=== PATIENT | female | born 1970 | race Caucasian/White ===

== ENCOUNTER 2018-04-07 13:12 | Emergency (ER) | payer BC ==
[2018-04-07 13:44] VITALS: BP 153/83
--- NOTE | 2018-04-07 13:54 | UC ---
General HPI - HPI Summary HPI Summary: pt noted a sudden snap and pain to her L foot 2 days ago. she had been favoring her R foot due to a corn which she believes strained her L foot. pt tx'ed the corn with otc patches and notes much better, just some dry-peeling skin. - History of Current Complaint Chief Complaint: UCLowerExtremity Stated Complaint: LEFT FOOT INJURY Time Seen by Provider: 04/07/18 13:34 Hx Obtained From: Patient Hx Last Menstrual Period: mid-FEB 2018; sometimes irregular Onset/Duration: Sudden Onset Timing: Constant Pain Intensity: 7 - Allergy/Home Medications Allergies/Adverse Reactions: Allergies Allergy/AdvReac Type Severity Reaction Status Date / Time No Known Allergies Allergy Verified 04/07/18 13:36 Home Medications: Home Medications Aspirin TAB* [Aspirin 325 MG TAB*] 1 tab DAILY 04/07/18 [History Confirmed 04/07] Cholecalciferol TAB* [Vitamin D TAB*] 5,000 unit DAILY 04/07/18 [History Confirmed 04/07/18] Hydroxychloroquine TAB* [Plaquenil TAB*] 1 tab BID 04/07/18 [History Confirmed 04/07/18] Olmesartan Medoxomil [Benicar] 2 tab DAILY 04/07/18 [History Confirmed 04/07/18] Potassium Chlor TAB* [Potassium Chlor TAB 20 MEQ*] 20 meq DAILY 04/07/18 [ History Confirmed 04/07/18] Torsemide TAB* [Demadex 20 MG*] 10 mg DAILY 04/07/18 [History Confirmed 04/07/18 ] oxyCODONE TAB* [Roxycodone TAB 5 mg*] 10 mg Q6HR PRN MDD 4 04/07/18 [History Confirmed 04/07/18] PMH/Surg Hx/FS Hx/Imm Hx - Additional Past Medical History Additional PMH: RA, CVA, Fibromyalgia. - Surgical History Surgical History: Yes Surgery Procedure, Year, and Place: bilat feet 30 years ago - Social History Alcohol Use: None Substance Use Type: Prescribed Smoking Status (MU): Heavy Every Day Tobacco Smoker Type: Cigarettes Amount Used/How Often: 1 PPD Length of Time of Smoking/Using Tobacco: 35 years - Immunization History Vaccination Up to Date: Yes Review of Systems All Other Systems Reviewed And Are Negative: Yes Constitutional: Positive: Other - corn r foot Skin: Positive: Negative Eyes: Positive: Negative ENT: Positive: Negative Respiratory: Positive: Negative Cardiovascular: Positive: Negative Gastrointestinal: Positive: Negative Genitourinary: Positive: Negative Motor: Positive: Negative Neurovascular: Positive: Negative Musculoskeletal: Positive: Arthralgia - chronic, Myalgia - chronic, Other: - L foot pain Neurological: Positive: Negative Psychological: Positive: Negative Is Patient Immunocompromised?: No Physical Exam Triage Information Reviewed: Yes Appearance: Well-Appearing Vital Signs: Initial Vital Signs Temp 98.7 F 04/07/18 13:37 Pulse 116 04/07/18 13:37 Resp 16 04/07/18 13:37 BP 153/83 04/07/18 13:37 Pulse Ox 100 04/07/18 13:37 Vital Signs Reviewed: Yes Eyes: Positive: Conjunctiva Clear ENT: Positive: Normal ENT inspection Neck: Positive: Supple Respiratory: Positive: Lungs clear, Normal breath sounds Cardiovascular: Positive: RRR. Negative: Tachycardia Abdomen Description: Positive: Nontender, No Organomegaly, Soft Bowel Sounds: Positive: Present Musculoskeletal: Positive: Other: - L foot= old post op scar. mild swelling and slight bruising forefoot. tender in area of 2nd metatarsal. foot has gross s/v/ m function. Neurological: Positive: Alert Psychological: Positive: Age Appropriate Behavior Skin Exam: Normal Skin: Positive: Other - Plantar surface R foot has some pale dry peeling at site of "corn" but no odor, drainage, eryuhema, warmth or tendeness. Foot has gross s/v/m function. Diagnostics - Radiology No standard instances Radiology Interpretation Completed By: Radiologist - L foot=Negative for fracture or radiographic stigmata of stress reaction. #. No significant arthropathic process evident. #. 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 #. Nonspecific soft tissue swelling. Course/Dx - Course Course Of Treatment: dry peeling skin removed from R foot at pt request. - Differential Dx - Multi-Symptom Differential Diagnoses: Other - No concern for infection R foot. No fx seen L foot, will dx sprin but stress fx is possible. - Diagnoses Provider Diagnosis: Sprain of left foot Discharge - Sign-Out/Discharge Documenting (check all that apply): Patient Departure All imaging exams completed and their final reports reviewed: Yes - Discharge Plan Condition: Stable Disposition: HOME Patient Education Materials: Foot Sprain (ED) Forms: *Work Release Referrals: Sidney Millan MD [Medical Doctor] - 5 Days Additional Instructions: WEAR POST OP SHOE UNTIL CLEARED. - Billing Disposition and Condition Condition: STABLE Disposition: Home
== END 2018-04-07 14:27 | disposition home or self-care (01) ==
LOC: UCCORT 13:12
DX: S93.602A Unspecified sprain of left foot, initial encounter (principal); X50.0XXA Overexertion from strenuous movement or load, initial encounter; Y92.9 Unspecified place or not applicable; Z86.73 Personal history of transient ischemic attack (TIA), and cerebral infarction without residual deficits; M06.9 Rheumatoid arthritis, unspecified; M79.7 Fibromyalgia; F17.210 Nicotine dependence, cigarettes, uncomplicated
CPT/HCPCS: 99202; G0463

== ENCOUNTER 2018-05-29 09:08 | Emergency (ER) | payer BC ==
[2018-05-29 09:28] VITALS: BP 143/89
--- NOTE | 2018-05-29 09:45 | UC ---
UC General HPI - HPI Summary HPI Summary: Here for cough and congestion for the past 2 weeks. Over the past 3 days, her symptoms have worsened - increase in productive cough, wheezing, and congestion with sinus headache. Has needed inhalers in the past when she is sick. Is still actively smoking. Temp last night 101. +SMITH. with similar symptoms. States she gets bronchitis every year. Nauseated last night. No vomiting or diarrhea. No abdominal pain. Good PO. PMHx: Lupus and RA - not on immunosuppressive agents. - History of Current Complaint Chief Complaint: UCRespiratory Stated Complaint: COUGH, SINUSES Time Seen by Provider: 05/29/18 09:28 Hx Last Menstrual Period: mid-FEB 2018; sometimes irregular Pain Intensity: 4 - Allergy/Home Medications Allergies/Adverse Reactions: Allergies Allergy/AdvReac Type Severity Reaction Status Date / Time antibiotics Allergy GI Upset Uncoded 05/29/18 09:28 PMH/Surg Hx/FS Hx/Imm Hx Previously Healthy: No - LUpus, RA and Fibromyalgia - Surgical History Surgical History: Yes Surgery Procedure, Year, and Place: bilat feet 30 years ago - Social History Alcohol Use: None Substance Use Type: Prescribed Smoking Status (MU): Heavy Every Day Tobacco Smoker Type: Cigarettes Amount Used/How Often: 1 PPD Length of Time of Smoking/Using Tobacco: 35 years Household Exposure Type: Cigarettes - Immunization History Vaccination Up to Date: Yes Review of Systems All Other Systems Reviewed And Are Negative: Yes Constitutional: Positive: Fever, Fatigue Skin: Positive: Rash ENT: Positive: Sinus Congestion, Sinus Pain/Tenderness Respiratory: Positive: Shortness Of Breath, Cough Cardiovascular: Positive: Negative Gastrointestinal: Positive: Nausea Is Patient Immunocompromised?: No Physical Exam Vital Signs: Initial Vital Signs Temp 97.6 F 05/29/18 09:22 Pulse 100 05/29/18 09:22 Resp 18 05/29/18 09:22 BP 143/89 05/29/18 09:22 Pulse Ox 100 05/29/18 09:22 Diagnostics - Radiology CXR Radiology Interpretation Completed By: Radiologist Summary of Radiographic Findings: No acute finding Course/Dx - Course Course Of Treatment: This is a 48 yr old with worsening URI symptoms over past 3 days (started 2 weeks ago) with fever and wheezing on exam. Assessment. No acute respiratory distress. Plan. Bronchitis with Reactive Airway Disease. Take Zpak and prednisone as prescribed. Use Albuterol inhaler every 4 hours while sick, then as needed. If symptoms persist or worsen, return to ER or call PCP for further evaluation. Discontinue smoking - Diagnoses Provider Diagnosis: Bronchitis, Reactive airway disease Discharge - Sign-Out/Discharge Documenting (check all that apply): Patient Departure All imaging exams completed and their final reports reviewed: Yes - Discharge Plan Condition: Fair Disposition: HOME Prescriptions: Albuterol HFA INHALER* [Ventolin HFA Inhaler*] 2 puff INH Q4H PRN #1 mdi PRN Reason: shortness of breath Azithromyxin [place] (NF) [Z-[place] (Zithromax) 250 mg tabs #6] 2 tab PO .TODAY, THEN 1 DAILY #6 tab Benzonatate CAP* [Tessalon 100 MG CAP*] 200 mg PO BID PRN #30 cap PRN Reason: Cough predniSONE TAB* [Deltasone 20 MG TAB*] 20 mg PO DAILY #11 tab Spacer/Holding Chamber (NF) [Easivent CHAMBER (NF)] 1 applic INH Q4HR PRN #1 device PRN Reason: Shortness Of Breath Forms: *Work Release Referrals: Lina Borden PA [Primary Care Provider] - Additional Instructions: Bronchitis with Reactive Airway Disease Take Zpak and prednisone as prescribed Use Albuterol inhaler every 4 hours while sick, then as needed If symptoms persist or worsen, return to ER or call PCP for further evaluation Discontinue smoking - Billing Disposition and Condition Condition: FAIR Disposition: Home
[2018-05-29] MEDS: Albuterol 2.5 MG/3 ML NEB.SOL* (0.083%) INH ONE (09:52)
== END 2018-05-29 10:12 | disposition home or self-care (01) ==
LOC: UCCORT 09:08
DX: J40 Bronchitis, not specified as acute or chronic (principal); J45.909 Unspecified asthma, uncomplicated; M32.9 Systemic lupus erythematosus, unspecified; M06.9 Rheumatoid arthritis, unspecified; Z88.1 Allergy status to other antibiotic agents; F17.210 Nicotine dependence, cigarettes, uncomplicated
CPT/HCPCS: 71046; 99212; G0463

== ENCOUNTER 2023-10-24 07:03 | Inpatient (IN) ==
[2023-10-24 11:41] LABS: Hematocrit 32.4 % (35-45); Mean Corpuscular Hemoglobin 27.3 pg (27-33); Mean Corpuscular Hgb Conc 30.9 g/dL (31-36); Mean Corpuscular Volume 88.4 fL (80-97); Mean Platelet Volume 8.3 fL (7.5-11.2); Platelet Count 337 10^3/uL (150-450); Red Blood Count 3.66 10^6/uL (3.63-4.92); Red Cell Distribution Width 17.5 % (12-17); White Blood Count 29.8 10^3/uL (3.8-11.8)
[2023-10-24] MEDS: Lactated Ringers 1000 ml BAG 1,000 ML IV ONE ×2 (11:45→15:13)
[2023-10-24 11:56] LABS: Activated Partial Thrombo Time 29.9 seconds (26.0-38.0); INR 1.5 (0.83-1.13)
[2023-10-24] MEDS ORDERED: Zosyn per Pharmacy NOTE FOLLOW UP SCH (12:00)
[2023-10-24] MEDS ORDERED: Vancomycin per Pharmacy 1 EA NOTE FOLLOW UP SCH (12:00)
[2023-10-24 12:24] LABS: Albumin 2.5 g/dL (3.2-5.2); Albumin/Globulin Ratio 0.7 (1-3); Calcium 7.5 mg/dL (8.6-10.3); Creatinine, Serum 4.18 mg/dL (0.51-0.95); Globulin 3.6 g/dL (2-4); Magnesium 1.6 mg/dL (1.9-2.7); Phosphorus 6.8 mg/dL (2.5-5.0); Potassium 5.9 mmol/L (3.5-5.0); Total Bilirubin 0.4 mg/dL (0.2-1.0); Total Protein 6.1 g/dL (6.4-8.9)
[2023-10-24 13:21] LABS: ABS Lymphocytes 0.7 10^3/uL (1.0-4.8); ABS Monocytes 0.6 10^3/uL (0.0-0.9); ABS Neutrophils 28.4 10^3/uL (1.5-7.6); ABS Nucleated RBC 0.01 10^3/ul; Eosinophil % 0.1 %; Lymphocyte % 2.4 %; RBC Morphology Normal (Normal)
[2023-10-24] MEDS: Norepinephrine 4 MG/250mL D5W 0 MCG/0 ML BAG IV ONE (14:10)
[2023-10-24] MEDS ORDERED: Albuterol HFA INHALER 8 gm MDI INH PRN (15:00)
[2023-10-24] MEDS: Hydrocortisone INJ 100 MG/2ML 2 ML VIAL IM SCH (15:04)
[2023-10-24] MEDS: Hydrocortisone INJ 100 MG/2ML 2 ML VIAL IV SCH (15:10)
[2023-10-24] MEDS ORDERED: Propofol 10 MG/ML 20 ML BTL ONE (17:48)
[2023-10-24] MEDS ORDERED: Lidocaine 2% PF 5 ML VIAL ONE (17:48)
[2023-10-24] MEDS ORDERED: Dexamethasone IV 4 MG/ML VIAL 1 ml VIAL ONE ×2 (17:48→18:35)
[2023-10-24] MEDS ORDERED: fentaNYL 100 mcg/2 ml 50 MCG/ML VIAL ONE ×2 (17:48→18:58)
[2023-10-24] MEDS ORDERED: Ondansetron 4 mg VIAL 2 MG/ML 2 ml VIAL ONE (17:48)
[2023-10-24] MEDS ORDERED: Midazolam 2 mg/2 ml VIAL 1 mg/ml 2 ml VIAL (2 mg) ONE ×2 (17:48→18:58)
[2023-10-24] MEDS ORDERED: Rocuronium 50 mg VIAL 10 mg/ml 5 ml VIAL (50 mg) ONE (17:48)
[2023-10-24] MEDS ORDERED: Meropenem 1 GM PREMIX(*) 1 GM/50 ML BAG IV SCH (18:00)
[2023-10-24] MEDS ORDERED: Iohexol 350 (CONTRAST) 100 ML PAK IV ONE (18:02)
[2023-10-24] MEDS ORDERED: Iohexol 180 (CONTRAST) 10 ML SDV IV ONE (18:04)
[2023-10-24] MEDS ORDERED: Phenylephrine 40 mcg/mL 10mL (400mcg) SYRINGE ONE (18:32)
[2023-10-24] MEDS: Piperacillin/Tazobac 3.375 BAG 3.375 GM/100 ML BAG IV ONE (20:33)
[2023-10-24 22:28] LABS: Creatinine, Serum 4.5 mg/dL (0.51-0.95); Potassium 6.8 mmol/L (3.5-5.0)
[2023-10-24] MEDS ORDERED: Dextrose 50% VIAL 50 ml IV ONE (22:32)
[2023-10-24] MEDS ORDERED: Furosemide 40 mg/4 ml IV VIAL IV SLOW PU ONE (22:38)
[2023-10-24] MEDS: Dextrose 50% Syringe 50 ml 25 GM/50 ML SYRINGE IV PUSH ONE (22:42)
[2023-10-24] MEDS: CALCIUM GLUCONATE 1GM/50ML NS 1 GM/50 ML BAG IV ONE (22:45)
[2023-10-24] MEDS: Furosemide IV 100 MG in NS 0.9% 100 ML TOTAL IV SCH (23:27)
[2023-10-24] MEDS: Sodium Polystyrene ORAL.SUSP 15 GM/60 ML BTL PO ONE (23:27)
[2023-10-25] MEDS: ZOSYN 3.375 GM Q12H per EXTENDED INFUSION IV SCH ×2 (01:59→18:26)
[2023-10-25 03:03] LABS: Anion Gap 11 mmol/L (2-16); Blood Urea Nitrogen 42 mg/dL (6-24); CO2 Carbon Dioxide 22 mmol/L (22-32); Calcium 7.2 mg/dL (8.6-10.3); Chloride 103 mmol/L (101-111); Creatinine, Serum 4.71 mg/dL (0.51-0.95); Glucose 105 mg/dL (70-100); Potassium 6.6 mmol/L (3.5-5.0); Sodium 136 mmol/L (135-145); eGFR CKD-EPI 10.4 (>60)
[2023-10-25] MEDS: SODIUM ZIRCONIUM CYCLOSILICATE 10 GM PACKET PO ONE (04:06)
[2023-10-25] MEDS: Sodium Polystyrene ORAL.SUSP 15 GM/60 ML BTL PO ONE (05:12)
[2023-10-25 06:07] LABS: Hematocrit 30.3 % (35-45); Hemoglobin 9.4 g/dL (11.5-14.3); Mean Corpuscular Hemoglobin 27.6 pg (27-33); Mean Corpuscular Hgb Conc 31.1 g/dL (31-36); Mean Platelet Volume 8.3 fL (7.5-11.2); Platelet Count 307 10^3/uL (150-450); Red Blood Count 3.41 10^6/uL (3.63-4.92); Red Cell Distribution Width 17.6 % (12-17); White Blood Count 30.1 10^3/uL (3.8-11.8)
[2023-10-25 06:22] LABS: Calcium 7.2 mg/dL (8.6-10.3); Creatinine, Serum 4.96 mg/dL (0.51-0.95); Magnesium 1.8 mg/dL (1.9-2.7); Potassium 6.4 mmol/L (3.5-5.0); Vancomycin Random 17.6 mcg/mL; eGFR CKD-EPI 9.8 (>60)
[2023-10-25] MEDS: Norepinephrine 4 MG/250mL NS 4,000 MCG/250 ML BAG IV SCH (07:19)
[2023-10-25 08:52] LABS: ABS Basophils 0.1 10^3/uL (0.0-0.1); ABS Eosinophils 0.7 10^3/uL (0.0-0.5); ABS Lymphocytes 0.8 10^3/uL (1.0-4.8); ABS Monocytes 0.7 10^3/uL (0.0-0.9); ABS Neutrophils 27.8 10^3/uL (1.5-7.6); ABS Nucleated RBC 0.02 10^3/ul; Eosinophil % 2.4 %; Lymphocyte % 2.6 %; Nucleated Red Blood Cells % 0.1 %/100WBC (0.0-0.8)
[2023-10-25] MEDS: Magnesium Sulfate 2 gm BAG 2 GM/50 ML BAG IVPB ONE (09:31)
[2023-10-25] MEDS: Vancomycin Random Level NOTE FOLLOW UP ONE (09:31)
[2023-10-25] MEDS ORDERED: NS 0.9% 1000 ml BAG 100 ML IV PRN (12:07)
[2023-10-25] MEDS ORDERED: NS 0.9% 1000 ml BAG 200 ML IV PRN (12:07)
[2023-10-25] MEDS: Heparin 1,000 UNIT/ML 10 ml (10,000 UNITS) CATHLAB/DIALYSIS DIALYSIS PRN (14:40)
[2023-10-25] MEDS: Albumin Human 25% 25 GM/100 ML BTL IV PRN (14:52)
[2023-10-25 16:33] LABS: Hepatitis B Surface Antigen Nonreactive (Nonreactive)
[2023-10-25] MEDS: Nystatin TOP POWDER 15 GM BTL TOPICAL SCH (16:34)
[2023-10-25 16:50] LABS: Hepatitis B Surface Ab Not Immune (Immune)
[2023-10-25 19:00] LABS: % Iron Saturation 11 % (15-55); .Transferrin 130 mg/dL (203-362); C Reactive Protein 432.68 mg/L (<8.01); Iron < 20 ug/dL (50-212); Total Iron Binding Capacity 182 mcg/dL (250-450); Unsaturated Iron Binding 162 ug/dL
[2023-10-25 19:14] LABS: TSH Ultra Thyroid Stim Horm 1.38 mcIU/mL (0.34-5.60)
[2023-10-25] MEDS ORDERED: Senna TAB 8.6 mg TAB PO PRN (19:18)
[2023-10-25] MEDS ORDERED: Polyethylene Glycol 3350 17 GM PACKET PO PRN (19:18)
[2023-10-25 19:21] LABS: Ferritin 693.8 ng/mL (11-307)
[2023-10-25 19:25] LABS: Vitamin B12 > 1450 pg/mL (180-914)
[2023-10-25] MEDS: Vancomycin 1000 MG in NS 0.9% 250 ML IVPB ONE (20:07)
[2023-10-25] MEDS: Heparin 5000 UNITS/ML 1 mL VIAL SUBCUT SCH (20:07)
[2023-10-25 21:31] LABS: Venous Bicarbonate HCO3 21.4 mmol/L (24-28)
[2023-10-25 22:00] LABS: Albumin/Globulin Ratio 0.9 (1-3); Calcium 7.4 mg/dL (8.6-10.3); Creatinine, Serum 3.72 mg/dL (0.51-0.95); Globulin 3.2 g/dL (2-4); Potassium 5.1 mmol/L (3.5-5.0); Total Bilirubin 0.3 mg/dL (0.2-1.0); Total Protein 6.2 g/dL (6.4-8.9); eGFR CKD-EPI 13.8 (>60)
[2023-10-26 04:37] LABS: Hematocrit 27.9 % (35-45); Hemoglobin 8.6 g/dL (11.5-14.3); Mean Corpuscular Hemoglobin 27.5 pg (27-33); Mean Corpuscular Volume 88.8 fL (80-97); Mean Platelet Volume 8.2 fL (7.5-11.2); Platelet Count 262 10^3/uL (150-450); Red Blood Count 3.14 10^6/uL (3.63-4.92); Red Cell Distribution Width 17.7 % (12-17); White Blood Count 22.8 10^3/uL (3.8-11.8)
[2023-10-26 05:59] LABS: Calcium 7.3 mg/dL (8.6-10.3); Creatinine, Serum 4.12 mg/dL (0.51-0.95); Magnesium 2.1 mg/dL (1.9-2.7); Potassium 5.6 mmol/L (3.5-5.0); Vancomycin Random 25.7 mcg/mL; eGFR CKD-EPI 12.2 (>60)
[2023-10-26 06:34] LABS: Venous Bicarbonate HCO3 20.5 mmol/L (24-28)
[2023-10-26] MEDS: Vancomycin Random Level NOTE FOLLOW UP ONE (07:02)
[2023-10-26] MEDS: cefTRIAXone 2 gm/50 mL D5W 2 GM/50 ML BAG IV SCH (17:28)
[2023-10-27 06:26] LABS: Hematocrit 26.7 % (35-45); Hemoglobin 8.7 g/dL (11.5-14.3); Mean Corpuscular Hemoglobin 28.5 pg (27-33); Mean Corpuscular Hgb Conc 32.5 g/dL (31-36); Mean Corpuscular Volume 87.8 fL (80-97); Platelet Count 239 10^3/uL (150-450); Red Blood Count 3.04 10^6/uL (3.63-4.92); Red Cell Distribution Width 17.2 % (12-17); White Blood Count 12.7 10^3/uL (3.8-11.8)
[2023-10-27 06:51] LABS: ABS Lymphocytes 0.7 10^3/uL (1.0-4.8); ABS Monocytes 0.6 10^3/uL (0.0-0.9); ABS Neutrophils 11.3 10^3/uL (1.5-7.6); Lymphocyte % 5.2 %
[2023-10-27 06:56] LABS: Albumin 3.3 g/dL (3.2-5.2); Albumin/Globulin Ratio 1.1 (1-3); Calcium 7.8 mg/dL (8.6-10.3); Creatinine, Serum 3.43 mg/dL (0.51-0.95); Phosphorus 6.6 mg/dL (2.5-5.0); Potassium 4.4 mmol/L (3.5-5.0); Total Bilirubin 0.3 mg/dL (0.2-1.0); Total Protein 6.3 g/dL (6.4-8.9); Vancomycin Random 27.1 mcg/mL; eGFR CKD-EPI 15.3 (>60)
[2023-10-27] MEDS: Vancomycin Random Level NOTE FOLLOW UP ONE (10:34)
[2023-10-28 07:45] LABS: Hematocrit 31.6 % (35-45); Hemoglobin 9.6 g/dL (11.5-14.3); Mean Corpuscular Hemoglobin 28.5 pg (27-33); Mean Corpuscular Hgb Conc 30.3 g/dL (31-36); Mean Corpuscular Volume 93.9 fL (80-97); Mean Platelet Volume 8.3 fL (7.5-11.2); Platelet Count 148 10^3/uL (150-450); Red Blood Count 3.36 10^6/uL (3.63-4.92); Red Cell Distribution Width 18.2 % (12-17)
[2023-10-28 08:31] LABS: ABS Lymphocytes 1.4 10^3/uL (1.0-4.8); ABS Monocytes 0.8 10^3/uL (0.0-0.9); ABS Neutrophils 8.8 10^3/uL (1.5-7.6); ABS Nucleated RBC 0.02 10^3/ul; Eosinophil % 0.1 %; Lymphocyte % 12.9 %; Nucleated Red Blood Cells % 0.2 %/100WBC (0.0-0.8)
[2023-10-28 08:32] LABS: RBC Morphology Normal (Normal)
[2023-10-28 08:37] LABS: Creatinine, Serum 3.56 mg/dL (0.51-0.95); Potassium 4.4 mmol/L (3.5-5.0); eGFR CKD-EPI 14.6 (>60)
[2023-10-29] MEDS: Metoprolol Tartrate 5 mg VIAL 5 ml VIAL (1 mg/ml) IV ONE (04:48)
[2023-10-29] MEDS: Ondansetron 4 mg VIAL 2 MG/ML 2 ml VIAL IV PRN (05:29)
[2023-10-29 06:32] LABS: Hematocrit 31.7 % (35-45); Hemoglobin 10.1 g/dL (11.5-14.3); Mean Corpuscular Hemoglobin 27.4 pg (27-33); Mean Corpuscular Hgb Conc 31.9 g/dL (31-36); Mean Corpuscular Volume 85.9 fL (80-97); Mean Platelet Volume 8.5 fL (7.5-11.2); Platelet Count 305 10^3/uL (150-450); Red Cell Distribution Width 16.3 % (12-17); White Blood Count 14.4 10^3/uL (3.8-11.8)
[2023-10-29 06:46] LABS: ABS Basophils 0.1 10^3/uL (0.0-0.1); ABS Eosinophils 0.1 10^3/uL (0.0-0.5); ABS Lymphocytes 1.6 10^3/uL (1.0-4.8); ABS Monocytes 0.8 10^3/uL (0.0-0.9); ABS Neutrophils 11.9 10^3/uL (1.5-7.6); ABS Nucleated RBC 0.01 10^3/ul; Eosinophil % 0.7 %; Lymphocyte % 11.4 %
[2023-10-29 06:49] LABS: Creatinine, Serum 2.47 mg/dL (0.51-0.95); Magnesium 1.5 mg/dL (1.9-2.7); Potassium 3.3 mmol/L (3.5-5.0); eGFR CKD-EPI 22.6 (>60)
[2023-10-29] MEDS: KCL 10 MEQ/50 ML IVPREMIX 10 MEQ/50 ML BAG IV SCH (07:37)
[2023-10-29] MEDS: Magnesium Sulfate 2 gm BAG 2 GM/50 ML BAG IVPB ONE (07:37)
[2023-10-29] MEDS: Psyllium PAK PO SCH (12:05)
[2023-10-30] MEDS: Calcium Carb (TUMS) 500 mg CHEW TAB PO PRN (02:32)
[2023-10-30 07:04] LABS: Hematocrit 32.3 % (35-45); Hemoglobin 10.7 g/dL (11.5-14.3); Mean Corpuscular Hemoglobin 28.2 pg (27-33); Mean Corpuscular Volume 85.3 fL (80-97); Mean Platelet Volume 8.7 fL (7.5-11.2); Platelet Count 395 10^3/uL (150-450); Red Blood Count 3.79 10^6/uL (3.63-4.92); Red Cell Distribution Width 16.3 % (12-17); White Blood Count 15.4 10^3/uL (3.8-11.8)
[2023-10-30 07:19] LABS: Calcium 8.8 mg/dL (8.6-10.3); Creatinine, Serum 2.64 mg/dL (0.51-0.95); Magnesium 1.7 mg/dL (1.9-2.7); Potassium 3.8 mmol/L (3.5-5.0); eGFR CKD-EPI 20.9 (>60)
[2023-10-30] MEDS: Magnesium Sulfate 2 gm BAG 2 GM/50 ML BAG IVPB ONE (08:55)
[2023-10-30 09:03] LABS: ABS Eosinophils 0.2 10^3/uL (0.0-0.5); ABS Lymphocytes 2.3 10^3/uL (1.0-4.8); ABS Neutrophils 11.9 10^3/uL (1.5-7.6); ABS Nucleated RBC 0.04 10^3/ul; Eosinophil % 1.5 %; Nucleated Red Blood Cells % 0.3 %/100WBC (0.0-0.8); RBC Morphology Normal (Normal)
[2023-10-31 06:40] LABS: Hematocrit 31.9 % (35-45); Hemoglobin 10.3 g/dL (11.5-14.3); Mean Corpuscular Hemoglobin 27.6 pg (27-33); Mean Corpuscular Hgb Conc 32.4 g/dL (31-36); Mean Corpuscular Volume 85.2 fL (80-97); Mean Platelet Volume 8.7 fL (7.5-11.2); Platelet Count 387 10^3/uL (150-450); Red Blood Count 3.74 10^6/uL (3.63-4.92); Red Cell Distribution Width 16.6 % (12-17); White Blood Count 12.2 10^3/uL (3.8-11.8)
[2023-10-31 07:27] LABS: Calcium 8.5 mg/dL (8.6-10.3); Creatinine, Serum 2.62 mg/dL (0.51-0.95); Magnesium 1.8 mg/dL (1.9-2.7); Potassium 3.4 mmol/L (3.5-5.0); eGFR CKD-EPI 21.1 (>60)
[2023-10-31 09:39] LABS: ABS Basophils 0.1 10^3/uL (0.0-0.1); ABS Eosinophils 0.3 10^3/uL (0.0-0.5); ABS Lymphocytes 2.2 10^3/uL (1.0-4.8); ABS Monocytes 0.9 10^3/uL (0.0-0.9); ABS Neutrophils 8.8 10^3/uL (1.5-7.6); ABS Nucleated RBC 0.02 10^3/ul; Eosinophil % 2.1 %; Lymphocyte % 18.2 %; Nucleated Red Blood Cells % 0.2 %/100WBC (0.0-0.8); RBC Morphology Normal (Normal)
[2023-10-31] MEDS: Potassium EFFERVES 25 meq TAB PO ONE (09:45)
[2023-10-31] MEDS: Lidocaine PATCH 5% PATCH TRANSDERM SCH (09:45)
[2023-10-31] MEDS: Calcium Carb (TUMS) 500 mg CHEW TAB PO SCH (09:46)
[2023-11-01 15:08] VITALS: BP 127/79
== END 2023-11-01 18:40 | disposition home or self-care (01) | DRG 710 ==
LOC: SUATTDRO 10:05 → ICU 10:05 → MEDTELE 10-26 20:41
PROVIDERS: ADMIT Internal Medicine Pulmonary Disease; ATTEND Internal Medicine